=== PATIENT | male | born 1985 | race Caucasian/White ===

== ENCOUNTER 2022-03-23 15:16 | Emergency (ER) | payer SELFPAY ==
[~2022-03-23] VITALS: Ht 167.6 cm; Wt 80.0 kg
[~2022-03-23 15:16] MED LIST: DENIES ANY HOME MEDS
[2022-03-23 15:33] VITALS: BP 119/79
[2022-03-23] MEDS ORDERED: LIDOCAINE 1% HCL (LOCAL ANESTH.) INJ 20ML MDV ID ONE (16:30)
[2022-03-23] MEDS ORDERED: MORPHINE SULFATE 4 MG/ML SYR/VIAL IM ONE (16:30)
[2022-03-23] MEDS ORDERED: HYDR-4798 PO (19:30)
[2022-03-23] MEDS ORDERED: CEPH-510 PO (19:30)
== END 2022-03-23 19:31 | disposition home or self-care (01) ==
LOC: ER 15:16
DX: S61.411A Laceration without foreign body of right hand, initial encounter (principal); F17.210 Nicotine dependence, cigarettes, uncomplicated; W22.8XXA Striking against or struck by other objects, initial encounter; Y93.89 Activity, other specified; Y92.89 Other specified places as the place of occurrence of the external cause; Y99.8 Other external cause status
CPT/HCPCS: 12002; 73130; 99283; J2001

== ENCOUNTER 2023-03-03 09:40 | Emergency (ER) | payer MEDICAID, OTHER ==
[~2023-03-03] VITALS: Ht 167.6 cm; Wt 75.8 kg
[~2023-03-03 09:40] MED LIST changes: +CEPH-510 PO; +HYDR-4798 PO
[2023-03-03 10:34] VITALS: BP 129/63; PULSE 95; RESP 16; TEMP 97.3; O2SAT 100
[2023-03-03] MEDS ORDERED: HYDR-4902 PO (10:41)
[2023-03-03] MEDS ORDERED: CLIN300C70 PO (10:41)
[2023-03-03] MEDS ORDERED: CLINDAMYCIN HCL 150 MG CAP PO ONE (10:45)
[2023-03-03] MEDS ORDERED: HYDROcodone-ACET 5/325MG TAB PO ONE (10:45)
== END 2023-03-03 10:42 | disposition home or self-care (01) ==
LOC: ER 09:40
DX: K02.9 Dental caries, unspecified (principal); K04.7 Periapical abscess without sinus; F17.210 Nicotine dependence, cigarettes, uncomplicated; F10.90 Alcohol use, unspecified, uncomplicated

== ENCOUNTER 2023-03-15 19:41 | Emergency (ER) | payer SELFPAY ==
[~2023-03-15] VITALS: Ht 167.6 cm; Wt 80.0 kg
[~2023-03-15 19:41] MED LIST changes: +CLIN300C70 PO; +HYDR-4902 PO
[2023-03-15 19:45] VITALS: BP 134/78; PULSE 84; RESP 18; O2SAT 96
[2023-03-15] MEDS ORDERED: TETANUS-DIPTH-ACEL PERTUSSIS 0.5ML SYR Tdap IM ONE (19:45)
[2023-03-15] MEDS ORDERED: ceFAZolin IM 1GM/2.5ML STERILE WATER IM ONE (19:45)
[2023-03-15] MEDS ORDERED: HYDROcodone-ACET 10/325MG TAB PO ONE (19:45)
[2023-03-15] MEDS ORDERED: IBUPROFEN 600 MG TAB PO ONE (19:45)
[2023-03-15] MEDS ORDERED: LIDOCAINE W/ EPINEPHRINE 2% INJ 20ML VIAL ONE (21:14)
[2023-03-15] MEDS ORDERED: IBU600T PO (21:31)
[2023-03-15] MEDS ORDERED: CEPH250C PO (21:31)
[2023-03-15] MEDS ORDERED: ACET500T58 PO (21:31)
== END 2023-03-15 23:36 | disposition home or self-care (01) ==
LOC: ER 19:41
DX: S61.532A Puncture wound without foreign body of left wrist, initial encounter (principal); M79.5 Residual foreign body in soft tissue; W19.XXXA Unspecified fall, initial encounter; Y93.89 Activity, other specified; Y92.89 Other specified places as the place of occurrence of the external cause; Y99.8 Other external cause status
CPT/HCPCS: 73090; 99284; J0690